=== PATIENT | male | born 1995 | race African-American/Black ===

== ENCOUNTER 2017-09-17 14:12 | Emergency (ER) | payer MEDICAID ==
[~2017-09-17 14:12] MED LIST: CYCL5TAB PO; DICL75 PO
[2017-09-17 14:18] VITALS: BP 132/74; PULSE 105; RESP 14; TEMP 97.5; O2SAT 100
[2017-09-17 14:51] LABS: AUTOMATED NEUTROPHIL # 11.3 TH/MM3 (1.8-7.7); BASOPHIL % 0.2 % (0.0-2.0); EOSINOPHIL # 0.1 TH/MM3 (0-0.4); EOSINOPHIL % 0.5 % (0.0-4.0); HEMOGLOBIN 15.7 GM/DL (13.0-17.0); LYMPH % 15.6 % (9.0-44.0); LYMPHOCYTE # 2.2 TH/MM3 (1.0-4.8); MEAN CELL VOLUME 88.3 FL (80.0-100.0); MEAN CORPUSCULAR HEMOGLOBIN 30.8 PG (27.0-34.0); MEAN CORPUSCULAR HGB CONC 34.9 % (32.0-36.0); MEAN PLATELET VOLUME 9.6 FL (7.0-11.0); MONO % 5.4 % (0.0-8.0); MONOCYTE # 0.8 TH/MM3 (0-0.9); NEUT % 78.3 % (16.0-70.0); PLATELET COUNT 218 TH/MM3 (150-450); RED CELL DISTRIBUTION WIDTH 12.5 % (11.6-17.2); WHITE BLOOD COUNT 14.4 TH/MM3 (4.0-11.0)
[2017-09-17 15:04] LABS: ALBUMIN 4.5 GM/DL (3.4-5.0); ALT (GPT) 37 U/L (12-78); AST (GOT) 34 U/L (15-37); BICARBONATE 30.7 MEQ/L (21.0-32.0); BLOOD UREA NITROGEN 18 MG/DL (7-18); CALCIUM 8.9 MG/DL (8.5-10.1); CHLORIDE 101 MEQ/L (98-107); GLOMERULAR FILTRATION RATE 83 ML/MIN (>89); GLUCOSE,RANDOM 151 MG/DL (74-106); MAGNESIUM 1.9 MG/DL (1.5-2.5); SODIUM (NA) 137 MEQ/L (136-145)
[2017-09-17 15:07] LABS: ALKALINE PHOSPHATASE 65 U/L (45-117); TOTAL BILIRUBIN ADULT 0.5 MG/DL (0.2-1.0); TOTAL PROTEIN 7.9 GM/DL (6.4-8.2)
[2017-09-17 15:22] LABS: BACTERIA, URINE RARE /hpf; BILIRUBIN, URINE NEG (NEG); BLOOD, URINE NEG (NEG); GLUCOSE,URINE NEG (NEG); HYALINE CAST, URINE 2 /lpf (RARE); KETONE, URINE NEG (NEG); MUCUS URINE MANY /lpf (OCC); NITRITE,URINE NEG (NEG); PH, URINE 5.5 (5.0-8.5); SQUAMOUS EPITHELIAL CELL URINE <1 /hpf (0-5); URINE COLOR YELLOW (YELLW/STRAW); URINE LEUKOCYTE ESTERASE NEG (NEG)
--- NOTE | 2017-09-17 15:40 | RADRPT ---
EXAM DATE/TIME: 09/17/2017 15:04 [facility] COMPARISON: No previous studies available for comparison. INDICATIONS : New onset on seizures. RADIATION DOSE: 56.35 CTDIvol (mGy) MEDICAL HISTORY : None SURGICAL HISTORY : None. ENCOUNTER: Initial ACUITY: 1 day PAIN SCALE: 2/10 LOCATION: cranial TECHNIQUE: Multiple contiguous axial images were obtained of the head. Using automated exposure control and adj ustment of the mA and/or kV according to patient size, radiation dose was kept as low as reasonably a chievable to obtain optimal diagnostic quality images. DICOM format image data is available electro nically for review and comparison. FINDINGS: CEREBRUM: The ventricles are normal for age. No evidence of midline shift, mass lesion, hemorrhage or acute in farction. No extra-axial fluid collections are seen. POSTERIOR FOSSA: The cerebellum and brainstem are intact. The 4th ventricle is midline. The cerebellopontine angle i s unremarkable. EXTRACRANIAL: The visualized portion of the orbits is intact. SKULL: The calvaria is intact. No evidence of skull fracture. CONCLUSION: 1. No acute intracranial abnormality. Hari Minaya MD on September 17, 2017 at 15:37 Board Certified Radiologist. This report was verified electronically.
--- NOTE | 2017-09-17 16:13 | PD ---
HPI Chief Complaint: Seizure Time Seen by Provider: 15:55 Travel History International Travel<30 days: No Contact w/Intl Traveler<30days: No Traveled to known affect area: No History of Present Illness HPI 21-year-old -[place] male presents to emergency department status post question seizure, while getting a haircut. This was witnessed, and patient had episode of unresponsiveness without obvious seizure-like activity, did not lose bowel or bladder control, and it lasted several seconds to a minute. After this episode the patient felt some chest discomfort, which got worse while waiting in the waiting room. Patient denies any stimulant use, or drug use. He denies recent illness or injury. Patient states his chest pain is currently a 3 out of 10. He denies shortness of breath or cough. Labs ordered in triage including CBC, CMP, and urinalysis as well as a drug screen. He has no known drug allergies. [facility] Past Medical History Immunizations Current: Yes Social History Alcohol Use: No Tobacco Use: No Substance Use: No Allergies-Medications (Allergen,Severity, Reaction): Coded Allergies: No Known Allergies (Unverified Adverse Reaction, Unknown, 09/17/17) Reported Meds & Prescriptions Reported Meds & Active Scripts Active Diclofenac Sodium 75 Mg Tab 75 Mg PO BID Flexeril (Cyclobenzaprine HCl) 5 Mg Tab 1 Tab PO Q8 PRN Review of Systems Except as stated in HPI: all other systems reviewed are Neg General / Constitutional: No: Fever, Chills Eyes: No: Visual changes HENT: No: Headaches, Vertigo, Lightheadedness, Sore Throat, Rhinitis, Rhinorrhea, Congestion, Nosebleed, Neck Stiffness, Neck Pain, Dental Difficulties, Earache Cardiovascular: Positive: Chest Pain or Discomfort, No: Palpitations, Irregular Rhythm, Tachycardia, Diaphoresis, Dyspnea on exertion, Claudication Respiratory: No: Cough, Shortness of Breath, Wheezing Gastrointestinal: No: Nausea, Vomiting, Diarrhea, Abdominal Pain Genitourinary: No: Dysuria Musculoskeletal: No: Pain Skin: No Rash Neurologic: No: Weakness Psychiatric: No: Depression Endocrine: No: Polydipsia Hematologic/Lymphatic: No: Easy Bruising Physical Exam Narrative GENERAL: Patient appears in no distress. SKIN: Warm and dry. Normal color. Normal turgor. HEAD: Atraumatic. Normocephalic. EYES: Pupils equal and round. No scleral icterus. No injection or drainage. ENT: No nasal bleeding or discharge. Mucous membranes pink and moist. Pharynx is clear. Airway is patent. NECK: Trachea midline. Supple nontender. CARDIOVASCULAR: Regular rate and rhythm. No murmurs gallops or rubs. RESPIRATORY: No accessory muscle use. Clear to auscultation. Breath sounds equal bilaterally. GASTROINTESTINAL: Abdomen soft, non-tender, nondistended. Hepatic and splenic margins not palpable. MUSCULOSKELETAL: Extremities without clubbing, cyanosis, or edema. No obvious deformities. NEUROLOGICAL: Awake and alert. No obvious cranial nerve deficits. Motor grossly within normal limits. Five out of 5 muscle strength in the arms and legs. Normal speech. PSYCHIATRIC: Appropriate mood and affect; insight and judgment normal. Data Data Last Documented VS Vital Signs Date Time Temp Pulse Resp B/P (MAP) Pulse Ox O2 Delivery O2 Flow Rate FiO2 09/17/17:18 97.5 105 14 132/74 (93) 100 Orders Orders Complete Blood Count With Diff (09/17/17 14:26) Alcohol (Ethanol) (09/17/17 14:26) Drug Screen, Random Urine (09/17/17 14:26) Electrocardiogram (09/17/17 ) Ct Brain W/O Iv Contrast(Rout) (09/17/17 ) Comprehensive Metabolic Panel (09/17/17 14:26) Urinalysis - C+S If Indicated (09/17/17 14:26) Magnesium (Mg) (09/17/17 14:26) Chest, Single Ap (09/17/17 16:02) Ckmb (Isoenzyme) Profile (09/17/17 14:27) Troponin I (09/17/17 14:27) CKMB (09/17/17 14:27) CKMB% (09/17/17 14:27) Labs Laboratory Tests Test 09/17/17 14:27 White Blood Count 14.4 TH/MM3 Red Blood Count 5.10 MIL/MM3 Hemoglobin 15.7 GM/DL Hematocrit 45.0 % Mean Corpuscular Volume 88.3 FL Mean Corpuscular Hemoglobin 30.8 PG Mean Corpuscular Hemoglobin Concent 34.9 % Red Cell Distribution Width 12.5 % Platelet Count 218 TH/MM3 Mean Platelet Volume 9.6 FL Neutrophils (%) (Auto) 78.3 % Lymphocytes (%) (Auto) 15.6 % Monocytes (%) (Auto) 5.4 % Eosinophils (%) (Auto) 0.5 % Basophils (%) (Auto) 0.2 % Neutrophils # (Auto) 11.3 TH/MM3 Lymphocytes # (Auto) 2.2 TH/MM3 Monocytes # (Auto) 0.8 TH/MM3 Eosinophils # (Auto) 0.1 TH/MM3 Basophils # (Auto) 0.0 TH/MM3 CBC Comment DIFF FINAL Differential Comment Urine Color YELLOW Urine Turbidity CLEAR Urine pH 5.5 Urine Specific [place] 1.032 Urine Protein 30 mg/dL Urine Glucose (UA) NEG mg/dL Urine Ketones NEG mg/dL Urine Occult Blood NEG Urine Nitrite NEG Urine Bilirubin NEG Urine Urobilinogen LESS THAN 2.0 MG/DL Urine Leukocyte Esterase NEG Urine RBC LESS THAN 1 /hpf Urine WBC 3 /hpf Urine Squamous Epithelial Cells <1 /hpf Urine Bacteria RARE /hpf Urine Hyaline Casts 2 /lpf Urine Mucus MANY /lpf Microscopic Urinalysis Comment CULT NOT INDICATED Blood Urea Nitrogen 18 MG/DL Creatinine 1.30 MG/DL Random Glucose 151 MG/DL Total Protein 7.9 GM/DL Albumin 4.5 GM/DL Calcium Level 8.9 MG/DL Magnesium Level 1.9 MG/DL Alkaline Phosphatase 65 U/L Aspartate Amino Transf (AST/SGOT) 34 U/L Alanine Aminotransferase (ALT/SGPT) 37 U/L Total Bilirubin 0.5 MG/DL Sodium Level 137 MEQ/L Potassium Level 3.5 MEQ/L Chloride Level 101 MEQ/L Carbon Dioxide Level 30.7 MEQ/L Anion Gap 5 MEQ/L Estimat Glomerular Filtration Rate 83 ML/MIN Total Creatine Kinase 739 U/L Creatine Kinase MB 3.9 NG/ML Creatine Kinase MB % 0.5 % Troponin I LESS THAN 0.02 NG/ML Urine Opiates Screen NEG Urine Barbiturates Screen NEG Urine Amphetamines Screen NEG Urine Benzodiazepines Screen NEG Urine Cocaine Screen NEG Urine Cannabinoids Screen POS Ethyl Alcohol Level LESS THAN 3 MG/DL [facility] Medical Decision Making Medical Screen Exam Complete: Yes Emergency Medical Condition: Yes Differential Diagnosis Syncopal episode. New-onset seizure. Chest pain. Cardiac syndrome. Narrative Course CT ordered in triage shows no acute process per radiologist. CBC shows 14.4 leukocytosis. Chemistries are unremarkable. Glucose is slightly elevated 151. Urinalysis is normal. Urine drug screen is positive for marijuana only. EKGs taken showing sinus tachycardia with a rate of 104 with right bundle branch block. This is reviewed with Dr. Lara. Chest x-ray is ordered as well as CK-MB and troponin. Troponin is less than 0.02, CK-MB is 3.9, total creatinine kinase is 739. Chest x-ray is unremarkable. Patient is felt stable for discharge home. Patient is to follow-up with Dr. Quevedo, the neurologist on-call today for possible new onset seizure versus syncopal episode. Diagnosis Primary Impression: Episode of syncope Qualified Codes: R55 - Syncope and collapse Additional Impression: Chest pain in adult Referrals: Sridhar Quevedo MD PhD Patient Instructions: Epilepsy (DC), General Instructions Additional Instructions: CBC shows 14.4 leukocytosis. Chemistries are unremarkable. Glucose is slightly elevated 151. Urinalysis is normal. Urine drug screen is positive for marijuana only. EKGs taken showing sinus tachycardia with a rate of 104 with right bundle branch block. This is reviewed with Dr. Lara. Chest x-ray is ordered as well as CK-MB and troponin. Troponin is less than 0.02, CK-MB is 3.9, total creatinine kinase is 739. Chest x-ray is unremarkable. Patient is felt stable for discharge home. Patient is to follow-up with Dr. Quevedo, the neurologist on-call today for possible new onset seizure versus syncopal episode. Med/Other Pt SpecificInfo: Prescription(s) given Disposition: DISCHARGE HOME Condition: Stable Carlos Justice Sep 17, 2017 16:13
[2017-09-17 16:24] LABS: TROPONIN I LESS THAN 0.02 NG/ML (0.02-0.05)
[2017-09-17 16:59] VITALS: BP 138/74
--- NOTE | 2017-09-17 17:11 | RADRPT ---
EXAM DATE/TIME: 09/17/2017 16:09 [facility] COMPARISON: No previous studies available for comparison. INDICATIONS : Chest pain today, possible seizure. MEDICAL HISTORY : None. SURGICAL HISTORY : None. ENCOUNTER: Initial ACUITY: 1 day PAIN SCORE: 5/10 LOCATION: Bilateral chest FINDINGS: A single view of the chest demonstrates the lungs to be symmetrically aerated without evidence of mas s, infiltrate or effusion. The cardiomediastinal contours are unremarkable. Osseous structures are intact. CONCLUSION: No acute cardiopulmonary process. Sae Vázquez MD on September 17, 2017 at 17:08 Board Certified Radiologist. This report was verified electronically.
--- NOTE | 2017-09-18 18:22 | EKG ---
Date Performed: 09/17/2017 Time Performed: 14:31:48 PTAGE: 21 years EKG: SINUS TACHYCARDIA POSSIBLE RIGHT VENTRICULAR CONDUCTION DELAY NONSPECIFIC T-WAVE ABNORMALIT Y ABNORMAL RHYTHM ECG NO PREVIOUS TRACING DOCTOR: Armando Castaneda Interpretating Date/Time 09/18/2017 18:21:06
== END 2017-09-17 17:04 | disposition home or self-care (01) ==
LOC: NEPD 14:12
DX: R55 Syncope and collapse (principal); R07.9 Chest pain, unspecified; R94.31 Abnormal electrocardiogram [ECG] [EKG]
CPT/HCPCS: 70450; 71045; 80053; 80307; 81001; 82550; 82552; 83735; 84484; 85025; 93005

== ENCOUNTER 2017-10-22 16:26 | Emergency (ER) | payer SELFPAY ==
[2017-10-22 16:36] VITALS: BP 144/91; PULSE 69; RESP 16; TEMP 98.2; O2SAT 99
--- NOTE | 2017-10-23 11:38 | PD ---
HPI Chief Complaint: Syncope/Near-Syncope Time Seen by Provider: 16:36 Travel History International Travel<30 days: No Contact w/Intl Traveler<30days: No Traveled to known affect area: No History of Present Illness HPI 21-year-old male with fairly new diagnosis of seizure disorder, presents to the emergency department for evaluation of a near syncopal episode today while shopping. Patient states this is what happened the last time he had a seizure. Patient has been unable to get to a neurologist. Denies any chest or tightness. No difficulty breathing. No recent illnesses, fever, or chills. No other symptoms to report per [facility] Past Medical History Immunizations Current: Yes Seizures: Yes Social History Alcohol Use: No Tobacco Use: No Substance Use: No Allergies-Medications (Allergen,Severity, Reaction): Coded Allergies: No Known Allergies (Unverified Adverse Reaction, Unknown, 09/17/17) Reported Meds & Prescriptions Reported Meds & Active Scripts Active Diclofenac Sodium 75 Mg Tab 75 Mg PO BID Flexeril (Cyclobenzaprine HCl) 5 Mg Tab 1 Tab PO Q8 PRN Review of Systems Except as stated in HPI: all other systems reviewed are Neg Physical Exam Narrative Well-nourished male patient. He is ambulatory with a non-ataxic gait. He has even respirations. Normal heart rate. Moves all extremities without difficulty. No obvious focal deficits or weakness. He speaks clearly to me. Data Data Last Documented VS Vital Signs Date Time Temp Pulse Resp B/P (MAP) Pulse Ox O2 Delivery O2 Flow Rate FiO2 18 16:36 98.2 69 16 144/91 (108) 99 MDM Medical Decision Making Medical Screen Exam Complete: Yes Emergency Medical Condition: Yes Medical Record Reviewed: Yes Differential Diagnosis Seizure versus electrolyte abnormality versus syncope versus near syncope Narrative Course 21-year-old male with history of seizure disorder presents emergency department for a near syncopal episode. Patient appears without distress. No obvious focal deficits weakness. Workup is initiated in triage. Prior to bed placement , patient chooses to leave. AMA: The risks of leaving against medical advice without further evaluation treatment were discussed with the patient. These risks include cardiac dysfunction, cardiac dysrhythmia, possible heart attack, possible stroke or . The patient indicated understanding of these risks and appeared to have the capacity to make this decision. Diagnosis Primary Impression: Near syncope Patient Instructions: General Instructions Departure Forms: Tests/Procedures Disposition: 07 AGAINST MEDICAL ADVICE Condition: Stable StevenZeinab POLLOCK Oct 23, 2017 11:38
== END 2017-10-22 18:42 | disposition left against medical advice (07) ==
LOC: NED 16:26
DX: R55 Syncope and collapse (principal); G40.909 Epilepsy, unspecified, not intractable, without status epilepticus
CPT/HCPCS: 99281